=== PATIENT | female | born 1945 | race Caucasian/White ===

== ENCOUNTER 2017-03-23 17:36 | Emergency (ER) | payer MEDICARE ==
[~2017-03-23] VITALS: Ht 157.5 cm; Wt 63.5 kg
[~2017-03-23 17:36] MED LIST: AUGMENTIN; COMPAZINE10 M PO; FLEXERIL10 MG PO; NO MEDICATIONS; NORCO 5/325 TAB1 TAB PO; SKELAXIN; ZOFRAN ODT4 MG/UDTAB PO
[2017-03-23 18:04] LABS: URINE BILIRUBIN NEGATIVE (NEG); URINE BLOOD NEGATIVE (NEG); URINE GLUCOSE (UA) NEGATIVE (NEG); URINE KETONE NEGATIVE (NEG); URINE LEUKOCYTE ESTERASE NEGATIVE (NEG); URINE NITRITE NEGATIVE (NEG); URINE PH 6.5 (5.0-8.0); URINE PROTEIN NEGATIVE (NEG); URINE SPECIFIC GRAVITY 1.005 (1.003-1.030)
[2017-03-23 18:05] LABS: URINE APPEARANCE CLEAR; URINE COLOR YELLOW
[2017-03-23] MEDS ORDERED: CIPRO500 M2 PO (19:46)
[2017-03-23] MEDS ORDERED: FLAGYL500 M1 PO (19:46)
== END 2017-03-23 20:10 ==
LOC: EDMED 17:36
PROVIDERS: Emergency Medicine
DX: R10.32 Left lower quadrant pain (principal); Z90.49 Acquired absence of other specified parts of digestive tract